=== PATIENT | female | born 1975 | race Caucasian/White ===

== ENCOUNTER → 2017-09-24 | Outpatient (CLI) | payer BC | END | disposition home or self-care (01) | LOC: OIH 14:07 | PROVIDERS: ATTEND Internal Medicine | DX: R91.1 Solitary pulmonary nodule (principal) | CPT/HCPCS: 71250 ==

== ENCOUNTER → 2017-11-04 | Outpatient (CLI) | payer BC | END | disposition home or self-care (01) | LOC: RAH 14:30 | PROVIDERS: ATTEND Obstetrics & Gynecology | DX: N60.02 Solitary cyst of left breast (principal); N60.01 Solitary cyst of right breast | CPT/HCPCS: 76641 ==

== ENCOUNTER → 2019-08-22 | Outpatient (CLI) | payer BC | END | disposition home or self-care (01) | LOC: RAH 14:43 | PROVIDERS: ATTEND Obstetrics & Gynecology | DX: N60.01 Solitary cyst of right breast (principal); N64.89 Other specified disorders of breast | CPT/HCPCS: 76641; 77066 ==

== ENCOUNTER → 2020-08-28 | Outpatient (CLI) | payer BC | END | disposition home or self-care (01) | LOC: RAH 13:00 | PROVIDERS: ATTEND Obstetrics & Gynecology | DX: N60.01 Solitary cyst of right breast (principal) | CPT/HCPCS: 77066 ==

== ENCOUNTER → 2021-02-19 | Outpatient (CLI) | payer BC | END | disposition home or self-care (01) | LOC: RAH 14:59 | PROVIDERS: ATTEND Obstetrics & Gynecology | DX: N64.4 Mastodynia (principal); R92.2 Inconclusive mammogram | CPT/HCPCS: 76641 ==

== ENCOUNTER → 2021-11-28 | Outpatient (CLI) | payer BC | END | disposition home or self-care (01) | LOC: RAH 08:04 | PROVIDERS: ATTEND Obstetrics & Gynecology | DX: N60.01 Solitary cyst of right breast (principal); N60.02 Solitary cyst of left breast | CPT/HCPCS: 77066 ==

== ENCOUNTER → 2022-12-07 | Outpatient (CLI) | payer BC | END | disposition home or self-care (01) | LOC: RAH 08:47 | PROVIDERS: ATTEND Obstetrics & Gynecology | DX: N60.01 Solitary cyst of right breast (principal); N60.02 Solitary cyst of left breast | CPT/HCPCS: 77066 ==

== ENCOUNTER → 2024-03-13 | Outpatient (CLI) | payer BC | END | disposition home or self-care (01) | LOC: RAH 14:02 | PROVIDERS: ATTEND Obstetrics & Gynecology | DX: Z12.31 Encounter for screening mammogram for malignant neoplasm of breast (principal); R92.333 Mammographic heterogeneous density, bilateral breasts | CPT/HCPCS: 77063; 77067 ==

== ENCOUNTER → 2024-09-22 | Outpatient (CLI) | payer BC ==
--- NOTE | 2024-09-22 12:00 | HMCIMG ---
Exam Type: US TRANSVAGINAL NON-OB Clinical Information: LEIOMYOMA OF [place], UNSP Comparison: None Findings: The examination shows an anteverted uterus which demonstrates a posterior subserosal fibroid measuring 1.8 cm. The uterus measures 8.9 x 4.8 x 6.2 cm. The endometrial lining is normal in thickness. It measures 5 mm. No intrauterine or ectopic seen. The ovaries are normal in size and echogenicity. The right ovary measures 2.3 x 1.8 x 2.6 cm. The left ovary measures 1.7 x 1.6 x 2.4 cm. Vascular Doppler flow exam and spectral analysis of waveforms analysis is unremarkable bilaterally. There is preserved vascularity to both ovaries on Doppler evaluation. Specifically, there is no evidence of ovarian torsion. No free fluid is noted throughout the cul-de-sac. There are no adnexal abnormalities. No other significant abnormalities are seen. No fluid collections or masses or free fluid are identified in the pelvis. Impression: Uterine fibroid. Otherwise unremarkable uterus. No evidence of adnexal abnormalities or ovarian torsion. No intrauterine or ectopic seen.
== END | disposition home or self-care (01) ==
LOC: RAH 10:28
PROVIDERS: ATTEND Obstetrics & Gynecology
DX: D25.2 Subserosal leiomyoma of uterus (principal)
CPT/HCPCS: 76830

== ENCOUNTER → 2025-01-25 | Outpatient (CLI) | payer BC ==
--- NOTE | 2025-01-25 16:04 | HMCIMG ---
US TRANSVAGINAL NON-OB HISTORY: No additional history given. COMPARISON: None TECHNIQUE: Transabdominal pelvic ultrasound study was performed. FINDINGS: The uterus measures 9.3 x 5.5 x 6.6 cm. The right ovary measures 1.1 x 1.1 x 0.9 cm. The left ovary is not seen. Flow is seen in right ovary. Endometrial thickness is 4 mm. There are hypoechoic nodules in the uterus with the largest measuring 19 x 8 x 17 mm may be related to fibroids. No free fluid is seen in the cul-de-sac. IMPRESSION: 1. No adnexal mass is seen. Suspect fibroid uterus.
--- NOTE | 2025-01-25 16:05 | HMCIMG ---
US PELVIC NON-OB COMP HISTORY: Left lower abdominal pain COMPARISON: 09/22/2024 TECHNIQUE: Transabdominal pelvic ultrasound study was performed. FINDINGS: The uterus measures 10.6 x 4.5 x 6.1 cm. The right ovary measures 2.2 x 0.9 x 2 cm. The left ovary measures 2.4 x 1 x 1.4 cm. Flow is seen in both ovaries. Endometrial thickness is 7 mm. No free fluid is seen in the cul-de-sac. IMPRESSION: 1. No adnexal mass is seen.
== END | disposition home or self-care (01) ==
LOC: RAH 12:46
PROVIDERS: ATTEND Obstetrics & Gynecology
DX: N85.8 Other specified noninflammatory disorders of uterus (principal); R93.89 Abnormal findings on diagnostic imaging of other specified body structures; R10.32 Left lower quadrant pain
CPT/HCPCS: 76830; 76856

== ENCOUNTER → 2025-02-20 | Outpatient (CLI) | payer BC ==
[2025-02-20 09:26] LABS: ALBUMIN 3.4 g/dL (3.5-5.0); BILIRUBIN,TOTAL 0.3 mg/dL (0.2-1.0); CREATININE 0.7 mg/dL (0.5-1.0); POTASSIUM 4.7 mmol/L (3.5-5.1); TOTAL PROTEIN, SERUM 7.5 g/dL (6.0-8.3)
== END | disposition home or self-care (01) ==
LOC: LAB 08:20
PROVIDERS: ATTEND Obstetrics & Gynecology
DX: R10.32 Left lower quadrant pain (principal)
CPT/HCPCS: 36415; 80053

== ENCOUNTER → 2025-02-23 | Outpatient (CLI) | payer BC ==
[~2025-02-23] MED LIST: IOHEXOL 350 MG/ML 100ML INFUS..BTL IV ONE
--- NOTE | 2025-02-23 11:37 | HMCIMG ---
CT PELVIS W/WO CONTRAST HISTORY: Left lower abdominal pain COMPARISON: None TECHNIQUE: Multiple sequential axial images of the pelvis were obtained from the iliac crests through symphysis pubis. Patient was given 85 cc of Omnipaque through intravenous route. Oral contrast was given. FINDINGS: There are normal sized pelvic and inguinal lymph nodes. Fecal material seen throughout the colon. Diverticula are seen within the colon consistent with diverticulosis. No ascites is seen. Atherosclerotic changes are present. Uterus is enlarged may be related to fibroid uterus. No bowel obstruction is seen. Pelvic sidewalls are symmetric bilaterally. Bladder is well distended without wall thickening. IMPRESSION: 1. No acute finding. CT was performed with one or more following dose reduction techniques: automated exposure control, adjustment of the mA and kv according to patient's size, or use of a iterative reconstruction technique.
== END | disposition home or self-care (01) ==
LOC: RAH 09:27
PROVIDERS: ATTEND Obstetrics & Gynecology
DX: N85.2 Hypertrophy of uterus (principal); K57.30 Diverticulosis of large intestine without perforation or abscess without bleeding; R19.5 Other fecal abnormalities; R10.32 Left lower quadrant pain; I70.90 Unspecified atherosclerosis
CPT/HCPCS: 72194; Q9967

== ENCOUNTER → 2025-04-23 | Outpatient (CLI) | payer BC ==
--- NOTE | 2025-04-25 08:31 | HMCIMG ---
DIGITAL BILATERAL SCREENING MAMMOGRAM WITH TOMOSYNTHESIS, DATED 04/23/2025 1:00 AM CDT Technique: The digital mammographic examination of both breasts in craniocaudal and mediolateral oblique views along with CAD was obtained. Tomosynthesis of both breasts was obtained. History: This is a 49 years year-old female 2, para 2 Ab 0 for 3D screening mammogram. Patient has no family history of breast cancer. Patient has no complaint Reference:Prior mammogram from 03/13/2024, 12/07/2022. 08/28/2020, 08/22/2019, 05/05/2018, 04/22/2017 are available for comparison. Breast composition: Breast composition C: The breasts are heterogeneously dense, which may obscure small masses. Finding: The digital mammographic examination of both breasts in craniocaudal and mediolateral oblique view along with CAD demonstrates both breasts to be moderately heterogeneously dense due to fibroglandular stromal elements.. There is no evidence of any dendritic mass, cluster microcalcification or architectural distortion. The Tomosynthesis demonstrates no lesion seen. The retromammary fat appears to be normal. IMPRESSION: Unchanged from prior mammography. NO RADIOGRAPHIC EVIDENCE OF MALIGNANT CHANGES. WE WOULD RECOMMEND ANNUAL FOLLOW UP WITH TOMOSYNTHESIS UNLESS OTHERWISE CLINICALLY INDICATED. FINAL ASSESSMENT: ACR: BI-RAD- 2. Benign: Also a negative assessment; finding(s) benign abnormalities. Management: Routine mammography screening. Likelihood of Cancer: Essentially 0% likelihood of malignancy. NOTE: IF A WORK-UP OF THIS PATIENT LEADS TO A BIOPSY, PLEASE FORWARD A COPY OF THE PATHOLOGY REPORT TO OUR OFFICE REQUIRED BY [employer] JUNE 27, 1994. A NEGATIVE MAMMOGRAM SHOULD NOT PRECLUDE BIOPSY OF A CLINICALLY PALPABLE SUSPICIOUS MASS, 10% OF BREAST CANCERS ARE MAMMOGRAPHICALLY OCCULT. THIS MAMMOGRAPHY FACILITY IS FULLY ACCREDITED BY THE [employer]OD AND DRUG [employer]ATION (FDA). THANK YOU FOR THIS REFERRAL.
== END | disposition home or self-care (01) ==
LOC: RAH 09:36
PROVIDERS: ATTEND Obstetrics & Gynecology
DX: Z12.31 Encounter for screening mammogram for malignant neoplasm of breast (principal)
CPT/HCPCS: 77063; 77067